=== PATIENT | male | born 1955 | race Caucasian/White ===

== ENCOUNTER → 2016-06-06 | Outpatient (CLI) | payer BC ==
--- NOTE | 2016-06-06 13:36 | PN ---
DATE OF SERVICE: A 61-year-old gentleman who has been followed in the sleep center for treatment of obstructive sleep apnea-hypopnea syndrome. Recently he had CPAP titration done and I discussed results of titration with the patient in details. His breathing was fully normalized at the pressure of 10 cm of water. At that pressure of 7 to 9 cm of water, he still had some abnormalities of respiration. Pressure all in the machine had been increased to 10 cm of water. Patient received new CPAP unit. At the beginning he had some difficulties secondary to pressure but at the present time he is used to the pressure using ramp and he is able to use equipment every night for the whole night. [place] Sleepiness Scale is 3. MEDICATIONS: Trulicity, ( ), losartan, aspirin, Zetia, ( ), vitamin D supplement. During physical exam, the patient in no distress. VITAL SIGNS: BP 115/65, HR 70, RR 16. Weight 201. Temp 98.0. Oxygen saturation at room air 94%. HEENT: PERRLA, EOMI, Evaluation of the oropharynx showed tongue protrudes midline. Low position of soft palate. NECK: Supple. No JVD, Thyroid is not palpable. LUNGS: Clear to percussion and to auscultation. Good air exchange. No wheezing or rhonchi. HEART: S1, S2 regular. No murmurs, gallops, or rubs. ABDOMEN: Soft and nontender. Bowel sounds are present. No organomegaly appreciated. EVENT MARKETING COORDINATOR: Awake, alert, and oriented x3. Cranial nerves 2 to 7 intact. There is no fasciculation or atrophy noted. No focal deficits observed. IMPRESSION: 1. Obstructive sleep apnea/hypopnea syndrome on control with CPAP at 10 cm of water. Patient benefiting from treatment. 2. Hypertension. 3. Coronary artery disease. 4. Hyperlipidemia. 5. Diabetes mellitus. 6. Status post colon resection for diverticulitis. 7. Status post intestinal resection for bleeding. 8. Status post hernia repair. 9. Status post appendectomy. PLAN: 1. Continue treatment with CPAP every night for the whole night. 2. Prescription for necessary CPAP supplies. 3. Losing weight. 4. Sleep hygiene with regular time in bed for at least 8 hours. 5. No driving if feeling any sleepiness. Thank you very much for allowing me to participate in the management of your patient. Sincerely, Rory Crowe MD, PhD, FAASM Diplomat of [place] [employer], Sleep Medicine Board by [place] [employer] [place] [employer] Electrician Master [employer] [facility] [place]
== END | disposition home or self-care (01) ==
LOC: SLEEP 11:26
PROVIDERS: ATTEND Internal Medicine
DX: G47.33 Obstructive sleep apnea (adult) (pediatric) (principal); I10 Essential (primary) hypertension; I25.10 Atherosclerotic heart disease of native coronary artery without angina pectoris; E78.5 Hyperlipidemia, unspecified; E11.9 Type 2 diabetes mellitus without complications; Z79.82 Long term (current) use of aspirin; Z99.89 Dependence on other enabling machines and devices; Z79.84 Long term (current) use of oral hypoglycemic drugs; Z79.899 Other long term (current) drug therapy

== ENCOUNTER → 2019-02-12 | Outpatient (CLI) | payer MEDICARE ==
--- NOTE | 2019-02-12 10:20 | MR ---
EXAMINATION TYPE: MR knee RT wo con DATE OF EXAM: 02/12/2019 COMPARISON: None HISTORY: Pain right knee, complex tear medial meniscus TECHNIQUE: Multiplanar, multisequence imaging of the right knee is performed without IV contrast. FINDINGS: MEDIAL MENISCUS: There is a complex tear involving the posterior horn of the medial meniscus LATERAL MENISCUS: Anterior and posterior horns are intact without tear. CRUCIATE LIGAMENTS: The anterior and posterior cruciate ligaments are intact and unremarkable. COLLATERAL LIGAMENTS: The medial collateral ligament and lateral collateral ligament complex are inta ct and unremarkable. EXTENSOR MECHANISM: Visualized quadriceps and patellar tendons are intact. EFFUSION: No significant suprapatellar joint effusion. POPLITEAL CYST: There is a 1 x 1 x 4 cm popliteal fossa cyst. TRICOMPARTMENT SPACES: There is loss of joint space involving the knee along both compartments greate r along the medial compartment. Patellofemoral joint involvement noted. No erosive changes. Grade III chondromalacia involving the patellar cartilage and medial femoral articular cartilage. No definite free fragments. BONE MARROW SIGNAL: Faint nonspecific vague less than 1 cm area of increased marrow signal involving the medial tibial plateau likely is reactive post arthritic changes.. IMPRESSION: 1. Complex tear posterior horn medial femoral cartilage 2. Osteoarthritis 3. Grade III chondromalacia patellar cartilage and medial femoral articular cartilage. 4. There is a popliteal fossa cyst measuring 1 x 1 x 4 cm.
== END | disposition home or self-care (01) ==
LOC: RADMRIMAIN 09:11
PROVIDERS: ATTEND Orthopaedic Surgery
DX: S83.241A Other tear of medial meniscus, current injury, right knee, initial encounter (principal); M17.11 Unilateral primary osteoarthritis, right knee; M22.41 Chondromalacia patellae, right knee; M25.861 Other specified joint disorders, right knee

== ENCOUNTER → 2019-10-01 | Outpatient (CLI) | payer MEDICARE | END | disposition home or self-care (01) | LOC: LABWHC1 14:22 | PROVIDERS: ATTEND Family Medicine | DX: Z11.59 Encounter for screening for other viral diseases (principal) | CPT/HCPCS: 36415; 86769 ==

== ENCOUNTER 2020-02-23 08:12 | Day surgery (SDC) | payer MEDICARE ==
[2020-02-21 11:27] VITALS: BMI 27.2
[~2020-02-23 08:12] MED LIST: LACTATED RINGERS 1,000 ML IV SCH; LIDOCAINE 1% (10MG/ML) FOR IV START INTRADERMA PRN
--- NOTE | 2020-02-23 08:58 | P.GSHP ---
History of Present Illness H&P Date: 02/23/20 CHIEF COMPLAINT: Colon screen HISTORY OF PRESENT ILLNESS: The patient is a 65-year-old male who presents for colon screen. Lower endoscopy was offered for further evaluation and management. PAST MEDICAL HISTORY: Please see list. PAST SURGICAL HISTORY: Please see list. MEDICATIONS: Please see list. ALLERGIES: Please see list. SOCIAL HISTORY: No illicit drug use FAMILY HISTORY: No reports of Crohn disease or ulcerative colitis. REVIEW OF ORGAN SYSTEMS: CONSTITUTIONAL: No reports of fevers or chills. PHYSICAL EXAM: VITAL SIGNS: Stable GENERAL: Well-developed pleasant in no acute distress. HEENT: No scleral icterus. Extraocular movements grossly intact. Moist buccal mucosa. NECK: Supple without lymphadenopathy. CHEST: Unlabored respirations. Equal bilateral excursions. CARDIOVASCULAR: Regular rate and rhythm. Distal 2+ pulses. ABDOMEN: Soft, nontender, nondistended. MUSCULOSKELETAL: No clubbing, cyanosis, or edema. ASSESSMENT: 1. Colon screen. PLAN: 1. Recommend proceeding with a lower endoscopy Past Medical History Past Medical History: Diabetes Mellitus, GERD/Reflux, Hyperlipidemia, Hypertension Additional Past Medical History / Comment(s): CONGENTIAL HEART DISEASE. DIVERTICULITIS History of Any Multi-Drug Resistant Organisms: None Reported Past Surgical History: Appendectomy, Bowel Resection, Heart Catheterization With Stent, Hernia Repair, Tonsillectomy Additional Past Surgical History / Comment(s): EXPLORATORY LAP FOR BLEED. SBO SX-2009. COLONOSCOPY/EGD Past Anesthesia/Blood Transfusion Reactions: No Reported Reaction Date of Last Stent Placement:: 2011 Smoking Status: Former smoker - Past Family History Mother Family Medical History: No Reported History Medications and Allergies Home Medications Medication Instructions Recorded Confirmed Type Aspirin [Adult Low Dose Aspirin EC] 81 mg PO DAILY 02/21/20 02/21/20 History DULoxetine HCL [Cymbalta] 30 mg PO DAILY 02/21/20 02/21/20 History Dapagliflozin Propanediol [Farxiga] 10 mg PO DAILY 02/21/20 02/21/20 History Dulaglutide [Trulicity] 1.5 mg SQ SA 02/21/20 02/21/20 History Ezetimibe [Zetia] 10 mg PO DAILY 02/21/20 02/21/20 History Ibuprofen [Motrin] 600 mg PO BID PRN 02/21/20 02/21/20 History Omeprazole 20 mg PO DAILY 02/21/20 02/21/20 History Sennosides/Docusate Sodium [Senna 1 each PO BID 02/21/20 02/21/20 History Plus 8.6-50 mg Softgel] Simvastatin 40 mg PO HS 02/21/20 02/21/20 History Allergies Allergy/AdvReac Type Severity Reaction Status Date / Time Iodine and Iodide Containing Allergy Anaphylaxis Verified 02/23/20 08:57 Produc shellfish derived Allergy Anaphylaxis Verified 02/23/20 08:57
[2020-02-23 09:08] LABS: Glucose,Whole Blood 171 mg/dL (75-99)
[2020-02-23 09:15] VITALS: TEMP 97.4
[2020-02-23] MEDS ORDERED: LIDOCAINE 1% INJ 10MG/ML (20 ML MDV) ONE (09:26)
[2020-02-23] MEDS ORDERED: PROPOFOL 10 MG/ML 20 ML VIAL IV ONE (09:26)
--- NOTE | 2020-02-23 09:53 | P.PCN ---
Date of Procedure: 02/23/20 Description of Procedure: PREOPERATIVE DIAGNOSIS: Personal history of colon polyps History of colectomy POSTOPERATIVE DIAGNOSIS: Personal history of colon polyps History of colectomy Diverticulosis, scattered. OPERATION: Colonoscopy to the cecum, ileocecal valve and appendiceal orifice. SURGEON: Genna Garsia MD. ANESTHESIA: MAC. INDICATIONS: The patient is a 65-year-old male who presents for colonoscopy screening. Last colonoscopy less than 5 years ago. Benefits and risks were described and informed consent was obtained. DESCRIPTION OF PROCEDURE: The patient had undergone Suprep. He had been brought into the operating room and laid in the left lateral decubitus position. After adequate intravenous sedation, the rectum was examined with 2% lidocaine jelly. External hemorrhoids were encountered. The rectal tone was within normal limits. No lesions were palpated in the rectal vault. An Olympus colonoscope was advanced until the cecum, ileocecal valve and appendiceal orifice were clearly viewed. The prep was excellent. Scattered diverticulosis was encountered. Hyperplastic colon polyp less than 3 mm in size along the cecum was found. No evidence of focal colitis was found. Retroflexion of the scope demonstrated grade 3 internal hemorrhoids without active bleeding or inflammation. The colon was desufflated. The patient had tolerated the procedure well. Withdrawal time was over 6 minutes. FINDINGS: Aronchick preparation quality scale 1 (1-5) Internal hemorrhoids, grade 3 External prolapsed hemorrhoids, grade 3 Scattered moderate diverticulosis No arteriovenous malformations. No adenomatous polyps. No focal colitis. RECOMMENDATIONS: Lower endoscopy in 3 years, 2022 Plan - Discharge Summary Discharge Rx Participant: No New Discharge Prescriptions: Continue Ibuprofen [Motrin] 600 mg PO BID PRN PRN Reason: Pain Dapagliflozin Propanediol [Farxiga] 10 mg PO DAILY DULoxetine HCL [Cymbalta] 30 mg PO DAILY Simvastatin 40 mg PO HS Ezetimibe [Zetia] 10 mg PO DAILY Sennosides/Docusate Sodium [Senna Plus 8.6-50 mg Softgel] 1 each PO BID Omeprazole 20 mg PO DAILY Dulaglutide [Trulicity] 1.5 mg SQ SA Aspirin [Adult Low Dose Aspirin EC] 81 mg PO DAILY Discharge Medication List Aspirin [Adult Low Dose Aspirin EC] 81 mg PO DAILY 02/21/20 [History] DULoxetine HCL [Cymbalta] 30 mg PO DAILY 02/21/20 [History] Dapagliflozin Propanediol [Farxiga] 10 mg PO DAILY 02/21/20 [History] Dulaglutide [Trulicity] 1.5 mg SQ SA 02/21/20 [History] Ezetimibe [Zetia] 10 mg PO DAILY 02/21/20 [History] Ibuprofen [Motrin] 600 mg PO BID PRN 02/21/20 [History] Omeprazole 20 mg PO DAILY 02/21/20 [History] Sennosides/Docusate Sodium [Senna Plus 8.6-50 mg Softgel] 1 each PO BID 02/21/20 [History] Simvastatin 40 mg PO HS 02/21/20 [History] Follow up Appointment(s)/Referral(s): Genna Garsia MD [STAFF PHYSICIAN] - As Needed Patient Instructions/Handouts: Diverticulosis Diet (GEN), Diverticulosis (DC), Hemorrhoids (DC) Activity/Diet/Wound Care/Special Instructions: Repeat colonoscopy 3 years, 2022 Discharge Disposition: HOME SELF-CARE
[2020-02-23 10:07] VITALS: BP 155/80; PULSE 71; RESP 16
== END 2020-02-23 10:29 | disposition home or self-care (01) ==
LOC: ORWHC2ENDO 08:12
PROVIDERS: ATTEND Surgery Plastic and Reconstructive Surgery
DX: Z12.11 Encounter for screening for malignant neoplasm of colon (principal); K63.5 Polyp of colon; K57.30 Diverticulosis of large intestine without perforation or abscess without bleeding; K64.2 Third degree hemorrhoids; K64.4 Residual hemorrhoidal skin tags; Z86.010 Personal history of colon polyps; Z90.49 Acquired absence of other specified parts of digestive tract; I10 Essential (primary) hypertension; E11.9 Type 2 diabetes mellitus without complications; E78.5 Hyperlipidemia, unspecified; K21.9 Gastro-esophageal reflux disease without esophagitis; Z95.5 Presence of coronary angioplasty implant and graft; Z87.891 Personal history of nicotine dependence; Z98.890 Other specified postprocedural states; Z79.1 Long term (current) use of non-steroidal anti-inflammatories (NSAID); Z79.82 Long term (current) use of aspirin; Z79.84 Long term (current) use of oral hypoglycemic drugs; Z79.899 Other long term (current) drug therapy; Z91.041 Radiographic dye allergy status; Z91.013 Allergy to seafood
CPT/HCPCS: J2001; J2704; G0105; 45378

== ENCOUNTER → 2021-10-16 | Outpatient (CLI) | payer MEDICARE ==
--- NOTE | 2021-10-16 14:39 | P.SLEEP ---
History of Present Illness H&P Date: 10/16/21 This is a 66-year-old male patient was diagnosed having obstructive sleep apnea in the year 2001. His original sleep study was done through an outside sleep center. Subsequently, the patient was seen in our sleep center and the patient underwent a CPAP titration in our sleep center on 03/19/2016 and at that time the patient was given a CPAP machine at a pressure of 10 cm of water. This was a dream station which is currently on recall and the patient quit using his machine for the past 2 years. For now, the patient is having issues with hypersomnia and sleepiness and is very much tired and fatigued and the patient is coming in to establish himself as same time proceed with CPAP therapy and wants to get a new CPAP machine. The patient is going to bed around 10 PM, waking up 7 AM in the morning. He is snoring. He is quitting breathing for now he is noted to have witnessed apneas. He is waking up not refreshed and he is feeling fatigued and tired during the day. On and off, he is taking naps. The patient wakes up at least 2-3 times in the middle of the night and is aroused. At times he has utilize the bathroom. No sleep paralysis. No hallucinations. No cataplexy. No recent weight gain. He has multiple comorbidities most significant of which is diabetes mellitus and heart disease in the form of coronary artery disease and hypertension hyperlipidemia. Review of Systems Constitutional: Reports daytime sleepiness, Reports fatigue Eyes: denies as per HPI, denies blurred vision, denies bulging eye, denies decreased vision, denies diplopia, denies discharge, denies dry eye, denies irritation, denies itching, denies pain, denies photophobia, denies loss of peripheral vision, denies loss of vision, denies tunnel vision/blind spots Ears: deny: decreased hearing, ear discharge, earache, tinnitus Ears, nose, mouth and throat: Reports as per HPI Cardiovascular: Reports as per HPI Respiratory: Reports sleep apnea, Reports snoring Gastrointestinal: Reports as per HPI Genitourinary: Reports as per HPI Musculoskeletal: Reports as per HPI Musculoskeletal: absent: ankle pain, ankle stiffness, ankle swelling Integumentary: Reports as per HPI Neurological: Reports as per HPI Psychiatric: Reports as per HPI Endocrine: Reports as per HPI Hematologic/Lymphatic: Reports as per HPI Allergic/Immunologic: Reports as per HPI Past Medical History Past Medical History: Coronary Artery Disease (CAD), Diabetes Mellitus, GE RD/Reflux, Hyperlipidemia, Hypertension, Sleep Apnea/CPAP/BIPAP Additional Past Medical History / Comment(s): CONGENTIAL HEART DISEASE. DIVERTICULITIS History of Any Multi-Drug Resistant Organisms: None Reported Past Surgical History: Appendectomy, Bowel Resection, Heart Catheterization With Stent, Hernia Repair, Tonsillectomy Additional Past Surgical History / Comment(s): EXPLORATORY LAP FOR BLEED. SBO SX-2009. COLONOSCOPY/EGD Past Anesthesia/Blood Transfusion Reactions: No Reported Reaction Date of Last Stent Placement:: 2011 Smoking Status: Former smoker - Past Family History Mother Family Medical History: No Reported History Medications and Allergies Home Medications Medication Instructions Recorded Confirmed Type Aspirin [Adult Low Dose Aspirin EC] 81 mg PO DAILY 02/21/20 02/21/20 History DULoxetine HCL [Cymbalta] 30 mg PO DAILY 02/21/20 02/21/20 History Dapagliflozin Propanediol [Farxiga] 10 mg PO DAILY 02/21/20 02/23/20 History Dulaglutide [Trulicity] 1.5 mg SQ SA 02/21/20 02/21/20 History Ezetimibe [Zetia] 10 mg PO DAILY 02/21/20 02/23/20 History Ibuprofen [Motrin] 600 mg PO BID PRN 02/21/20 02/21/20 History Omeprazole 20 mg PO DAILY 02/21/20 02/21/20 History Sennosides/Docusate Sodium [Senna 1 each PO BID 02/21/20 02/21/20 History Plus 8.6-50 mg Softgel] Simvastatin 40 mg PO HS 02/21/20 02/21/20 History Allergies Allergy/AdvReac Type Severity Reaction Status Date / Time Iodine and Iodide Containing Allergy Anaphylaxis Verified 02/23/20 08:57 Produc shellfish derived Allergy Anaphylaxis Verified 02/23/20 08:57 Physical Exam BP is 112/64 with a pulse of 96 and respiration of 12 with a temperature 97.3. Current pulse ox is 95%. Weight is 193. Body mass index is 28, [place] at 4 and excited 17 inches. The patient appeared well nourished and normally developed. Vital signs as docum ented. Head exam is unremarkable. No scleral icterus or corneal arcus noted. Neck is without jugular venous distension, thyromegaly, or carotid bruits. Carotid upstrokes are brisk bilaterally. Lungs are clear to auscultation and percussion. Cardiac exam reveals the PMI to be normally sized and situated. Rhythm is regular. First and second heart sounds normal. No murmurs, rubs or gallops. Abdominal exam reveals normal bowel sounds, no masses, no organomegaly and no aortic enlargement. Extremities are nonedematous and both femoral and pedal pulses are normal.Examination of the skin revealed no evidence of significant rashes, suspicious appearing nevi or other concerning lesions.Neurologically, the patient is awake and alert and the patient does not have any focal neurological deficit. Cranial nerves are essentially intact. Assessment and Plan Plan: Obstructive sleep apnea, patient was being successfully treated with CPAP pressure of 10 cm of water. The patient currently does not have a machine and the patient is coming in requesting a new machine to be ordered for him for ongoing CPAP therapy. He has been a long-time CPAP user. Quit his CPAP therapy approximately 2 years ago due to a recall on his machine. Chronic hypersomnia secondary to above Coronary artery disease Hypertension Diabetes mellitus Hyperlipidemia History of colon resection for an underlying complicated diverticulitis Previous history of GI bleeding Plan Ideally, would like to obtain a home sleep study to establish diagnosis and severity of sleep apnea. This was done for the patient. The same time, a ResMed CPAP unit was ordered for the patient and a minimum pressure of 5 and a maximum pressure 15 and I offered him airfit F20 fullface mask medium size. If the machine is delivered to the patient successfully, the patient will see back in the office in 30-90 days after obtaining his machine for a compliance check. Sleep hygiene measures are good. The patient is maintaining a regular sleep schedule. Condition is stable for now. We'll continue to follow. Sleep Note - Sleep Note Sleep Note: Temperature: Pulse Rate: Respiratory Rate: Blood Pressure: SpO2: Height: Weight: BMI: Neck Circumference:
== END ==
LOC: SLEEP 12:58
PROVIDERS: ATTEND Internal Medicine Critical Care Medicine
DX: G47.33 Obstructive sleep apnea (adult) (pediatric) (principal); Z99.89 Dependence on other enabling machines and devices; I25.10 Atherosclerotic heart disease of native coronary artery without angina pectoris; I10 Essential (primary) hypertension; E11.9 Type 2 diabetes mellitus without complications; E78.5 Hyperlipidemia, unspecified; Z98.890 Other specified postprocedural states; Z87.19 Personal history of other diseases of the digestive system; K21.9 Gastro-esophageal reflux disease without esophagitis; Z72.89 Other problems related to lifestyle; Z79.899 Other long term (current) drug therapy; Z79.84 Long term (current) use of oral hypoglycemic drugs; Z91.041 Radiographic dye allergy status; Z91.013 Allergy to seafood; Z87.891 Personal history of nicotine dependence
CPT/HCPCS: 99211

== ENCOUNTER → 2021-12-25 | Outpatient (CLI) | payer MEDICARE ==
--- NOTE | 2021-12-25 14:20 | CT ---
EXAMINATION TYPE: CT right knee - [facility] Protocol DATE OF EXAM: 12/25/2021 COMPARISON: MRI right knee February 12, 2019 HISTORY: pre op. Primary osteoarthritis. CT DLP: 634 mGycm. Automated Exposure Control for Dose Reduction was Utilized. TECHNIQUE: CT scan of the right knee performed without contrast. FINDINGS: Exam is for surgical planning and not for diagnostic purposes. [id number] axial join t space loss and acetabular spurring of both hips is present. Images of the right knee show moderate to severe narrowing and moderate spurring medial tibial femora l compartment. Lateral patellar tilting is seen. Images of bilateral ankles show asymmetric medial narrowing at level of ankle mortise bilaterally wit h more severe tilting and narrowing on the right suggesting prior ligamentous tear and/or remote accounts receivable assistant marcio injury. Correlate clinically. IMPRESSION: As above.
== END | disposition home or self-care (01) ==
LOC: RADCTMAIN 12:52
PROVIDERS: ATTEND Orthopaedic Surgery
DX: Z01.818 Encounter for other preprocedural examination (principal); M17.11 Unilateral primary osteoarthritis, right knee

== ENCOUNTER → 2021-12-31 | Outpatient (CLI) | payer MEDICARE ==
[2021-12-31 13:41] LABS: Partial Thromboplastin Time 22.7 sec (22.0-30.0); Prothrombin Time 10.5 sec (9.0-12.0)
[2021-12-31 18:06] LABS: HCT 41.3 % (39.6-50.0); HGB 13.7 g/dL (13.0-17.0); MCH 31.5 pg (27.0-32.0); MCHC 33.2 g/dL (32.0-37.0); MCV 94.9 fL (80.0-97.0); Mean Platelet Volume 11.4 fL (9.5-12.2); NRBC Per 100 WBC 0 /100 WBCS (0.0-0.0); Platelet Count 219 X 10*3/uL (140-440); RBC 4.35 X 10*6/uL (4.40-5.60); RDW 13.3 % (11.5-14.5); WBC 5.24 X 10*3/uL (4.50-10.00)
[2021-12-31 18:10] LABS: African American GFR (CKD) 79.5 (60.0-200.0); Albumin 4.7 g/dL (3.8-4.9); Albumin/Globulin Ratio 1.81 (1.60-3.17); Anion Gap 14.5 mmol/L (10.00-18.00); BUN/Creat Ratio 20.45 Ratio (12.00-20.00); Blood Urea Nitrogen 22.5 mg/dL (9.0-27.0); Calcium 9.9 mg/dL (8.7-10.3); Carbon Dioxide 23.5 mmol/L (20.0-27.5); Globulin 2.6 g/dL (1.6-3.3); Non-African American GFR(CKD) 68.6 (60.0-200.0); Potassium 4.2 mmol/L (3.5-5.5); Total Bilirubin 0.5 mg/dL (0.30-1.20); Total Protein 7.3 g/dL (6.2-8.2)
[2021-12-31 22:50] LABS: Appearance,Urine Clear (Clear); Bilirubin,Urine Negative (Negative); Blood,Urine Negative (Negative); Color,Urine Yellow (Yellow); Ketones,Urine Negative (Negative); Nitrite,Urine Negative (Negative); PH, Urine 5.5 (5.0-8.0); Specific Gravity,Urine >1.035 (1.001-1.030); Urobilinogen,Urine 0.2 (0.2,1.0)
== END | disposition home or self-care (01) ==
LOC: LABPAT 11:49
PROVIDERS: ATTEND Orthopaedic Surgery
DX: Z01.812 Encounter for preprocedural laboratory examination (principal)
CPT/HCPCS: 36415; 80053; 81003; 85027; 85610; 85730; 87070; 93005

== ENCOUNTER 2022-01-29 05:43 | Day surgery (SDC) | payer MEDICARE ==
[2022-01-28 09:21] VITALS: BMI 26.5
[~2022-01-29 05:43] MED LIST changes: +ACETAMINOPHEN TAB 500 MG TAB PO PRN; +DEXAMETHASONE SOD PHOSPHATE 4 MG/ML 1 ML VIAL IV ONE; +GABAPENTIN 300 MG CAP PO PRN; -LIDOCAINE 1% (10MG/ML) FOR IV START INTRADERMA PRN; +MELOXICAM 7.5 MG TAB PO PRN; +ONDANSETRON 4 MG/2 ML VIAL IVP ONE; +TRANEXAMIC ACID IN NACL,ISO-OS 1,000 MG in SALINE 1 100ML.BAG IVPB PRN
[2022-01-29] MEDS ORDERED: MIDAZOLAM 2 MG/2 ML VIAL IVP ONE (06:42)
[2022-01-29] MEDS ORDERED: fentaNYL (PF) 50 MCG/ML 2 ML AMP IVP ONE (06:42)
[2022-01-29 07:02] LABS: Glucose,Whole Blood 275 mg/dL (70-110)
[2022-01-29] MEDS ORDERED: ePHEDrine 50 MG/ML 1 ML VIAL ONE (07:04)
[2022-01-29] MEDS ORDERED: ROCURONIUM 10 MG/ML (5 ML VIAL) IV ONE (07:04)
[2022-01-29] MEDS ORDERED: SUCCINYLCHOLINE CHLORIDE 200 MG/10 ML VIAL IV ONE (07:04)
[2022-01-29] MEDS ORDERED: TRANEXAMIC ACID IN NACL,ISO-OS 1,000 MG/100 ML BAG ONE (07:04)
[2022-01-29] MEDS ORDERED: MIDAZOLAM 2 MG/2 ML VIAL ONE (07:04)
[2022-01-29] MEDS ORDERED: HYDROmorphone (PF) 1 MG/ML ONE (07:04)
[2022-01-29] MEDS ORDERED: fentaNYL (PF) 50 MCG/ML 2 ML AMP ONE (07:04)
[2022-01-29] MEDS ORDERED: SODIUM CHLORIDE 0.9% (PF) 10 ML VIAL ONE (07:04)
[2022-01-29] MEDS ORDERED: NEOSTIGMINE 1 MG/ML 10 ML VIAL ONE (07:04)
[2022-01-29] MEDS ORDERED: GLYCOPYRROLATE 0.2 MG/ML 2 ML VIAL ONE (07:04)
[2022-01-29] MEDS ORDERED: PROPOFOL 10 MG/ML 20 ML VIAL IV ONE (07:04)
[2022-01-29] MEDS ORDERED: ROPIVACAINE 5 MG/ML 30 ML VIAL ONE (07:04)
[2022-01-29] MEDS ORDERED: LIDOCAINE 2% INJ 20 MG/ML (2 ML VIAL) ONE (07:04)
[2022-01-29] MEDS ORDERED: INSULIN ASPART (NovoLOG) 100 UNIT/ML VIAL SQ ONE ×3 (07:05→10:06)
[2022-01-29] MEDS ORDERED: ceFAZolin 1,000 MG in SODIUM CHLORIDE 0.9% 1,000 ML IRRIGATION ONE (07:09)
[2022-01-29] MEDS ORDERED: LACTATED RINGERS 1,000 ML IV ONE (08:00)
[2022-01-29 08:21] LABS: Glucose,Whole Blood 224 mg/dL (70-110)
--- NOTE | 2022-01-29 08:51 | P.OP ---
Date of Procedure: 01/29/22 Preoperative Diagnosis: Severe medial compartment osteoarthritis right knee Postoperative Diagnosis: Severe medial compartment osteoarthritis right knee Procedure(s) Performed: Robotic-assisted medial unicompartmental knee replacement right knee Implants: Robert Restoris MCK femoral component size 5 right medial Robert Restoris MCK tibial baseplate size 4 right medial Robert X3 Uni onlay tibial insert size 4, 8 mm All components were cemented using Palacos R bone cement Articulation is cobalt chrome on polyethylene Anesthesia: GETA Surgeon: Frank Trinh Learning Support Specialist #1: Michael Hidalgo Learning Support Specialist #2: Linnette Wu Estimated Blood Loss (ml): 30 Pathology: other (Bone and cartilage) Condition: stable Disposition: PACU Indications for Procedure: This is a 67-year-old gentleman that presented to my office with painful arthritis of his right knee mainly located in the medial compartment. After discussing the surgical and nonsurgical treatment options with him at length, including a total knee arthroplasty versus a unicompartmental medial knee arthroplasty he has elected to proceed with the medial unicompartmental knee arthroplasty. He is aware of possible complications and benefits and informed consent was obtained. Operative Findings: The operative findings are consistent with medial compartment severe osteoarthritis of the right knee Description of Procedure: Patient was seen in the preoperative area and the consent was reviewed and the operative site was marked with a skin marker. The patient verified the procedure and the operative site. An adductor canal pain catheter and an iPACK block was placed by anesthesia in the preoperative area. The patient was then brought to the operating room and given preoperative antibiotics intravenously. A gram of transexamic acid was given intravenously. A general anesthetic was administered by the anesthesia department. A tourniquet was placed on the upper thigh and the lower extremity was prepped with chlorhexidine and draped in usual sterile fashion. A universal timeout was then performed which confirmed the patient's name, surgical site, ALLERGIES, and consent. The lower extremity was then exsanguinated and tourniquet was inflated to 250 mmHg. A standard anterior midline approach to the knee was performed. The skin and subcutaneous tissue were sharply dissected down to the patellar tendon. A medial parapatellar arthrotomy was then performed. The knee was then extended, the patellar was subluxed laterally. The infra-patellar fat pad was removed in order to enhance exposure. The anterior of the medial meniscus was excised, and a release was performed to the posterior medial aspect of the knee. On gross visual inspection, there was complete loss of articular cartilage in the medial compartment. There was no significant cartilage damage in the lateral compartment or patellofemoral compartment. There were multiple periarticular osteophytes globally about the medial aspect of the knee. The arrays were then placed in the distal femur and proximal tibia for the Handy robot. Check points were then registered per protocol. After all the checks points had been registered, the proximal tibia was then cut utilizing the Robert robotic arm and a saw blade. Next, the saw blade was used to cut the posterior femur. Next the sawblade was exchanged for bur and the medial femoral condyle and proximal tibia was then burred per protocol. Trials were then placed and the osteophytes removed with a Rominger. The knee was taken through range of motion as well as checked with the Robert wear which confirmed concentric tension throughout range of motion. The trials were then visualized and there is no evidence of any overhang or possible sites of impingement. The arrays were then removed from the distal femur and proximal tibia. The cut surfaces of bone were then irrigated with pulsatile lavage. The knee was also irrigated with Irrisept solution. The components were then opened, the cement was mixed, and the components were then cemented in place. The cement was allowed to harden with the knee in 30 of extension. After the cemented munoz rdened, the tourniquet was released and hemostasis was obtained. A second gram of transexamic acid was given intravenously. The knee was again irrigated. The knee was again taken through range of motion and found to be stable throughout all range of motion of 0-130, and the patella tracked normally. The fascia was then closed with 0 Vicryl followed by #2 strata fix suture. The subcutaneous t issue was closed with 3-0 Vicryl and 3-0 strata fix. Exofin glue was used for the skin and placed with the knee in flexion. After the glue had dried, and Optafoam silver impregnated dressing was applied. The patient was then transferred to recovery room in stable condition. The speech language pathology assistant Michael Hidalgo M.D. and MARY ANN Gonzalez was required due the complexity surgery and the need for a skilled surgical supply assistant. They assisted in positioning, draping, retraction, and closure of the wound.
[2022-01-29] MEDS ORDERED: NALOXONE 0.4 MG/ML 1 ML VIAL IV PRN (09:18)
[2022-01-29] MEDS ORDERED: HYDROmorphone 0.5 MG/0.5 ML SYRINGE IVP PRN ×3 (09:18)
[2022-01-29] MEDS ORDERED: ONDANSETRON 4 MG/2 ML VIAL IVP PRN (09:18)
[2022-01-29] MEDS ORDERED: HYDROcodone/APAP 7.5-325MG 1 EACH TAB PO PRN ×2 (09:20)
[2022-01-29 09:22] VITALS: RESP 16; TEMP 96.9
[2022-01-29] MEDS ORDERED: ROPIVACAINE 1,100 MG, SODIUM CHLORIDE 0.9% 500 ML 330 ML, EMPTY PAIN BALL 1 EACH MISCELLANE PRN ×2 (09:25)
[2022-01-29] MEDS: HYDROmorphone 0.5 MG/0.5 ML SYRINGE IVP PRN ×2 (09:29→09:46)
[2022-01-29] MEDS ORDERED: SODIUM CHLORIDE 0.9% 1,000 ML IV SCH (09:30)
[2022-01-29 09:45] LABS: Glucose,Whole Blood 266 mg/dL (70-110)
--- NOTE | 2022-01-29 09:55 | XR ---
EXAMINATION TYPE: XR knee limited RT DATE OF EXAM: 01/29/2022 COMPARISON: NONE TECHNIQUE: Two views submitted HISTORY: Post op FINDINGS: There is a prosthetic knee in near anatomic alignment. There is soft tissue edema and emphysema. IMPRESSION: 1. Postoperative change. Appears in near-anatomic alignment
[2022-01-29] MEDS ORDERED: ROPIVACAINE 0.2%-NS ON-Q PUMP 1,090 MG, EMPTY PAIN BALL 1 EACH MISCELLANE PRN (10:22)
--- NOTE | 2022-01-29 10:23 | P.ANPRN ---
Procedure Note - Anesthesia - Nerve Block Performed Right Adductor Canal Time Out Performed: Yes (06:41) Date of Procedure: 01/29/22 Procedure Start Time: Procedure Stop Time: :50 Location of Patient: PreOp Indication: Acute Post-Operative Pain, Requested by Surgeon (Dr Trinh) Sedation Type: Sedate with meaningful contact maintained Preparation: Sterile Prep, Sterile Dressing Position: Supine Catheter: Indwelling Needle Types: Pajunk Needle Gauge: 21 Ultrasound used to visualize needle placement: Yes Ultrasound used to observe medication spread: Yes Injectate: 0.5% Ropivacaine (see comment for volume) (15cc) Blood Aspirated: No Pain Paresthesia on Injection Noted: No Resistance on Injection: Normal Image Stored and Saved: Yes Events: Uneventful and Well Tolerated
--- NOTE | 2022-01-29 10:25 | P.ANPRN ---
Procedure Note - Anesthesia - Nerve Block Performed Right iPack Time Out Performed: Yes Date of Procedure: 01/29/22 Procedure Start Time: 06:51 Procedure Stop Time: 06:56 Location of Patient: PreOp Indication: Acute Post-Operative Pain, Requested by Surgeon (Dr Trinh) Sedation Type: Sedate with meaningful contact maintained Preparation: Sterile Prep Position: Supine Catheter: None Needle Types: Pajunk Needle Gauge: 21 Ultrasound used to visualize needle placement: Yes Ultrasound used to observe medication spread: Yes Injectate: 0.5% Ropivacaine (see comment for volume) (15cc +5cc PF Normal saline) Blood Aspirated: No Pain Paresthesia on Injection Noted: No Resistance on Injection: Normal Image Stored and Saved: Yes Events: Uneventful and Well Tolerated
[2022-01-29] MEDS ORDERED: ceFAZolin 10 GM VIAL IVPB ONE (11:10)
[2022-01-29] MEDS ORDERED: HYDROcodone/APAP 7.5-325MG 1 EACH TAB PO ONE (11:10)
[2022-01-29 11:11] VITALS: BP 176/81; PULSE 63
== END 2022-01-29 12:54 | disposition home health service (06) ==
LOC: OR 05:43
PROVIDERS: ATTEND Orthopaedic Surgery
DX: M17.11 Unilateral primary osteoarthritis, right knee (principal); E11.9 Type 2 diabetes mellitus without complications; I11.9 Hypertensive heart disease without heart failure; G89.18 Other acute postprocedural pain; Z79.899 Other long term (current) drug therapy; Z79.84 Long term (current) use of oral hypoglycemic drugs
CPT/HCPCS: 97110; 97161; 64999; 64448; 76942; 88300; 73560; 27446; C1713; C1776; J2250; J0330; J1100; J2710; J0690 ×2; J2405; J3010; J1170 ×2; J2795; J2704; J2001

== ENCOUNTER 2024-08-11 07:01 | Day surgery (SDC) | payer MEDICARE ==
[2024-08-11 07:44] VITALS: TEMP 97.8
[2024-08-11] MEDS: IV FLUID CONTINUATION 1,000 ML IV ONE (07:54)
[2024-08-11 07:55] LABS: Glucose,Whole Blood 131 mg/dL (70-110)
[2024-08-11 07:55] LABS: Glucose,Whole Blood 34 mg/dL (70-110)
[2024-08-11] MEDS: LACTATED RINGERS 1,000 ML IV SCH (07:56)
[2024-08-11] MEDS ORDERED: LIDOCAINE 1% INJ 10MG/ML (20 ML MDV) ONE (08:23)
[2024-08-11] MEDS ORDERED: PROPOFOL 10 MG/ML 20 ML VIAL IV ONE (08:23)
--- NOTE | 2024-08-11 08:41 | P.GSHP ---
History of Present Illness H&P Date: 08/11/24 CHIEF COMPLAINT: GERD and colon screen HISTORY OF PRESENT ILLNESS: The patient is a 69-year-old male who presents with gastric ulcer and need for colon screen. Upper and lower endoscopy were offered for further evaluation and management. PAST MEDICAL HISTORY: Please see list. PAST SURGICAL HISTORY: Please see list. MEDICATIONS: Please see list. ALLERGIES: Please see list. SOCIAL HISTORY: No illicit drug use FAMILY HISTORY: No reports of Crohn disease or ulcerative colitis. REVIEW OF ORGAN SYSTEMS: CONSTITUTIONAL: No reports of fevers or chills. GI: Denies any blood in stools or constipation. PHYSICAL EXAM: VITAL SIGNS: Stable GENERAL: Well-developed pleasant in no acute distress. HEENT: No scleral icterus. Extraocular movements grossly intact. Moist buccal mucosa. NECK: Supple without lymphadenopathy. CHEST: Unlabored respirations. Equal bilateral excursions. CARDIOVASCULAR: Regular rate and rhythm. Distal 2+ pulses. ABDOMEN: Soft, nondistended. MUSCULOSKELETAL: No clubbing, cyanosis, or edema. ASSESSMENT: 1. Gastric ulcer 2. Colon screen. PLAN: 1. Recommend proceeding with an upper and lower endoscopy Past Medical History Past Medical History: Coronary Artery Disease (CAD), Diabetes Mellitus, GERD/Ref lux, Hyperlipidemia, Hypertension, Sleep Apnea/CPAP/BIPAP Additional Past Medical History / Comment(s): CONGENTIAL HEART DISEASE,. DIVERTICULITIS History of Any Multi-Drug Resistant Organisms: None Reported Past Surgical History: Appendectomy, Bowel Resection, Heart Catheterization With Stent, Hernia Repair, Orthopedic Surgery, Tonsillectomy Additional Past Surgical History / Comment(s): EXPLORATORY LAP FOR BLEED. SBO S. COLONOSCOPY/EGD. Right knee replacement 02/02. 4 cardiac stents, 10 angioplasties, 7 abdominal surgeries. Past Anesthesia/Blood Transfusion Reactions: No Reported Reaction Date of Last Stent Placement:: 2021 Smoking Status: Former smoker - Past Family History Mother Family Medical History: No Reported History Medications and Allergies Home Medications Medication Instructions Recorded Confirmed Type Aspirin [Adult Low Dose Aspirin EC] 81 mg PO HS 02/21/20 08/11/24 History DULoxetine HCL [Cymbalta] 30 mg PO DAILY 02/21/20 08/11/24 History Dapagliflozin Propanediol [Farxiga] 10 mg PO DAILY 02/21/20 08/11/24 History Ezetimibe [Zetia] 10 mg PO DAILY 02/21/20 08/11/24 History Ibuprofen [Motrin] 600 mg PO BID 02/21/20 08/11/24 History Omeprazole 20 mg PO DAILY 02/21/20 08/11/[address] [place] 1 cap PO HS 01/28/22 08/11/24 History Acetaminophen [Tylenol 8 Hour] 650 mg PO Q6H 05/16/22 08/11/24 History Clopidogrel [Plavix] 75 mg PO DAILY 05/16/22 08/11/24 History [place]-3/Dha/Epa/Fish Oil [Fish Oil 1 cap PO HS 05/16/22 08/11/24 History 1,000 mg Softgel] Semaglutide [Ozempic] 2 mg SQ GONZALEZ 05/16/22 08/11/24 History Sennosides/Docusate Sodium [Senna 1 tab PO BID 05/16/22 08/11/24 History Plus 8.6-50 mg Tablet] Turmeric Root Extract [Turmeric] 500 mg PO DAILY 05/16/22 08/11/24 History glipiZIDE/METFORMIN HCL 1 tab PO DAILY 05/16/22 08/11/24 History [glipiZIDE/METFORMIN HCL 5-500 mg] Atorvastatin [Lipitor] 80 mg PO HS tab 05/18/22 08/11/24 Rx Nitroglycerin Sl Tabs [Nitrostat] 0.4 mg SUBLINGUAL Q5M PRN tab 05/18/22 08/11/24 Rx Olmesartan [Benicar] 40 mg PO DAILY 08/09/24 08/11/24 History Allergies Allergy/AdvReac Type Severity Reaction Status Date / Time Iodine and Iodide Containing Allergy Anaphylaxis Verified 08/11/24 07:29 Produc shellfish derived Allergy Anaphylaxis Verified 08/11/24 07:29 Surgical - Exam Vital Signs Temp Pulse Resp BP Pulse Ox 97.8 F 59 L 14 146/71 97 08/11/24 07:43 08/11/24 07:43 08/11/24 07:43 08/11/24 07:43 08/11/24 07:43 Results - Labs Abnormal Lab Results - Last 24 Hours (Table) 08/11/24 08/11/24 Range/Units 07:50 07:53 POC Glucose (mg/dL) 34 L* 131 H (70-110) mg/dL
--- NOTE | 2024-08-11 08:45 | P.PCN ---
Date of Procedure: 08/11/24 Description of Procedure: PREOPERATIVE DIAGNOSIS: Gastroesophageal reflux disease. Gastric ulcer POSTOPERATIVE DIAGNOSIS: Gastroesophageal reflux disease. Diaphragmatic hiatal hernia OPERATION: Esophagogastroduodenoscopy with cold forceps biopsies along esophagus, antrum and duodenum SURGEON: Genna Garsia MD ANESTHESIA: MAC. INDICATIONS: The patient is a 69-year-old male who presents with reflux disease. Benefits and risks of the procedure were described. Informed consent was obtained. DESCRIPTION: The patient was brought into the endoscopy suite and laid in the left lateral decubitus position. An Olympus gastroscope was passed along the posterior oropharynx down to the distal esophagus where the squamocolumnar junction was encountered at 40 cm from the incisors. The stomach was entered and no bile reflux was found. Additional findings are listed below. Biopsies with cold forceps were obtained of the antrum. The first through third portion of the duodenum was examined. Retroflexion of the scope confirmed Hill grade 2 lower esophageal valve. The squamocolumnar junction demonstrated LA grade A erosive esophagitis. The stomach was desufflated. The patient tolerated the procedure well. FINDINGS: Squamocolumnar junction 40 cm from the incisors. Diaphragmatic hiatus at 41 cm. Hiatal hernia, 1 cm, sliding hiatal hernia Hill grade 2 lower esophageal valve. LA grade A erosive esophagitis. Biopsies obtained of the duodenum. Chronic gastritis with biopsies obtained. Resolved gastric ulcer of the antrum RECOMMENDATIONS: Upper endoscopy as needed.
--- NOTE | 2024-08-11 09:29 | P.PCN ---
Date of Procedure: 08/11/24 Description of Procedure: PREOPERATIVE DIAGNOSIS: Colonoscopy screening POSTOPERATIVE DIAGNOSIS: Tubular adenoma transverse colon Sigmoid diverticulosis Internal hemorrhoids, grade 2 OPERATION: Colonoscopy to the ileocecal valve and appendiceal orifice, cecum Colonoscopy with hot snare polypectomy SURGEON: Genna Garsia MD. ANESTHESIA: MAC. INDICATIONS: The patient is an 69-year-old male who presents for colonoscopy screening. Last colonoscopy over 5 years. Benefits and risks were described and informed consent was obtained. DESCRIPTION OF PROCEDURE: The patient had undergone S[place] prep. The patient had been brought into the operating room and laid in the left lateral decubitus position. After adequate intravenous sedation, the rectum was examined with 2% lidocaine jelly. The prostate was unremarkable. External hemorrhoids were encountered. The rectal tone was within normal limits. No lesions were palpated in the rectal vault. An Olympus colonoscope was advanced until the cecum, ileocecal valve and appendiceal orifice were clearly viewed. The prep was fair. Sigmoid dive rticulosis was encountered. Colonic polyps were found and removed. No evidence of focal colitis was found. Retroflexion of the scope demonstrated grade 2 internal hemorrhoids without active bleeding or inflammation. The colon was desufflated. The patient had tolerated the procedure well. Withdrawal time was over 6 minutes. FINDINGS: [place]ick preparation quality scale 2+ (1-5) Internal hemorrhoids, grade 2 External hemorrhoids, grade 2 No arteriovenous malformations. Sigmoid diverticulosis Removal of 1 polyps: - Snare polypectomy mid transverse colon, 8 mm flat villous adenoma polyp. No focal colitis. RECOMMENDATIONS: Repeat colonoscopy 3 years, 2027 Plan - Discharge Summary Discharge Rx Participant: No New Discharge Prescriptions: Continue Ibuprofen [Motrin] 600 mg PO BID Dapagliflozin Propanediol [Farxiga] 10 mg PO DAILY DULoxetine HCL [Cymbalta] 30 mg PO DAILY Ezetimibe [Zetia] 10 mg PO DAILY Omeprazole 20 mg PO DAILY Aspirin [Adult Low Dose Aspirin EC] 81 mg PO HS Turmeric Root Extract [Turmeric] 500 mg PO DAILY [place]-3/Dha/Epa/Fish Oil [Fish Oil 1,000 mg Softgel] 1 cap PO HS Acetaminophen [Tylenol 8 Hour] 650 mg PO Q6H glipiZIDE/METFORMIN HCL [glipiZIDE/METFORMIN HCL 5-500 mg] 1 tab PO DAILY Sennosides/Docusate Sodium [Senna Plus 8.6-50 mg Tablet] 1 tab PO BID Nitroglycerin Sl Tabs [Nitrostat] 0.4 mg SUBLINGUAL Q5M PRN tab PRN Reason: Chest Pain Olmesartan [Benicar] 40 mg PO DAILY [place] 1 cap PO HS Semaglutide [Ozempic] 2 mg SQ GONZALEZ Clopidogrel [Plavix] 75 mg PO DAILY Atorvastatin [Lipitor] 80 mg PO HS tab Discharge Medication List Aspirin [Adult Low Dose Aspirin EC] 81 mg PO HS 02/21/20 [History] DULoxetine HCL [Cymbalta] 30 mg PO DAILY 02/21/20 [History] Dapagliflozin Propanediol [Farxiga] 10 mg PO DAILY 02/21/20 [History] Ezetimibe [Zetia] 10 mg PO DAILY 02/21/20 [History] Ibuprofen [Motrin] 600 mg PO BID 02/21/20 [History] Omeprazole 20 mg PO DAILY 02/21/20 [History] [place] 1 cap PO HS 01/28/22 [History] Acetaminophen [Tylenol 8 Hour] 650 mg PO Q6H 05/16/22 [History] Clopidogrel [Plavix] 75 mg PO DAILY 05/16/22 [History] [place]-3/Dha/Epa/Fish Oil [Fish Oil 1,000 mg Softgel] 1 cap PO HS 05/16/22 [History] Semaglutide [Ozempic] 2 mg SQ GONZALEZ 05/16/22 [History] Sennosides/Docusate Sodium [Senna Plus 8.6-50 mg Tablet] 1 tab PO BID 05/16/22 [History] Turmeric Root Extract [Turmeric] 500 mg PO DAILY 05/16/22 [History] glipiZIDE/METFORMIN HCL [glipiZIDE/METFORMIN HCL 5-500 mg] 1 tab PO DAILY 06/06 [History] Atorvastatin [Lipitor] 80 mg PO HS tab 05/18/22 [Rx] Nitroglycerin Sl Tabs [Nitrostat] 0.4 mg SUBLINGUAL Q5M PRN tab 05/18/22 [Rx] Olmesartan [Benicar] 40 mg PO DAILY 08/09/24 [History] Follow up Appointment(s)/Referral(s): Genna Garsia MD [STAFF PHYSICIAN] - 08/31/24 11:00 am Patient Instructions/Handouts: *Surgery [facility] - (Anesthesia) Discharge Instructions Outpatient Surgery, Diverticulosis Diet (GEN), Colorectal Polyps (GEN) Activity/Diet/Wound Care/Special Instructions: Resume clopidogrel today. Repeat colonoscopy 3 years, 2027 Discharge Disposition: HOME SELF-CARE
[2024-08-11 09:35] VITALS: BP 114/70; PULSE 65; RESP 18
== END 2024-08-11 09:36 | disposition home or self-care (01) ==
LOC: ORWHC2ENDO 07:01
PROVIDERS: ATTEND Surgery Plastic and Reconstructive Surgery
DX: Z12.11 Encounter for screening for malignant neoplasm of colon (principal); D12.3 Benign neoplasm of transverse colon; K29.50 Unspecified chronic gastritis without bleeding; K25.9 Gastric ulcer, unspecified as acute or chronic, without hemorrhage or perforation; K21.9 Gastro-esophageal reflux disease without esophagitis; K44.9 Diaphragmatic hernia without obstruction or gangrene; K57.30 Diverticulosis of large intestine without perforation or abscess without bleeding; K64.1 Second degree hemorrhoids; I25.10 Atherosclerotic heart disease of native coronary artery without angina pectoris; E11.9 Type 2 diabetes mellitus without complications; E78.5 Hyperlipidemia, unspecified; I10 Essential (primary) hypertension; G47.33 Obstructive sleep apnea (adult) (pediatric); Z90.89 Acquired absence of other organs; Z90.49 Acquired absence of other specified parts of digestive tract; Z96.651 Presence of right artificial knee joint; Z95.5 Presence of coronary angioplasty implant and graft; Z87.891 Personal history of nicotine dependence; Z98.890 Other specified postprocedural states; Z88.8 Allergy status to other drugs, medicaments and biological substances; Z91.041 Radiographic dye allergy status; Z79.84 Long term (current) use of oral hypoglycemic drugs; Z79.82 Long term (current) use of aspirin; Z79.1 Long term (current) use of non-steroidal anti-inflammatories (NSAID); Z79.02 Long term (current) use of antithrombotics/antiplatelets; Z79.899 Other long term (current) drug therapy
CPT/HCPCS: 88305; 45385; 43239; J2003; J2704

== ENCOUNTER → 2024-08-18 | Outpatient (CLI) | payer MEDICARE ==
[2024-08-18 09:44] LABS: African American GFR (CKD) 86 (>60 ml/min/1.73 sqM); Blood Urea Nitrogen 36 mg/dL (9-20); Non-African American GFR(CKD) 75 (>60 ml/min/1.73 sqM)
--- NOTE | 2024-08-18 10:25 | CT ---
EXAMINATION TYPE: CT abdomen pelvis w con CT DLP: 966.3 mGycm, Automated exposure control for dose reduction was used. DATE OF EXAM: 08/18/2024 10:14 AM COMPARISON: None CLINICAL INDICATION:Male, 69 years old with history of K57.32 diverticulitis; Diverticulitis and pote ntial abdominal blockage TECHNIQUE: Standard CT of the abdomen and pelvis following the administration of 100 cc of Isovue 3 00 IV contrast material and oral contrast. Coronal and sagittal reformats were performed. Patient was premedicated for iodine allergy. FINDINGS: LOWER CHEST: The visualized lung bases are clear. Coronary artery calcifications. Mitral annulus calc ifications. ABDOMEN LIVER: Unremarkable GALLBLADDER AND BILE DUCTS: Unremarkable. PANCREAS: Unremarkable. SPLEEN: Unremarkable. ADRENAL GLANDS: Unremarkable. KIDNEYS AND URETERS: No evidence of hydronephrosis or renal calculus. The kidneys enhance symmetrical ly. Bilateral perinephric fat stranding. PELVIS BLADDER: Incompletely distended but grossly unremarkable. REPRODUCTIVE: Unremarkable. ABDOMEN & PELVIS STOMACH AND BOWEL: Stomach and duodenum are unremarkable. Enteric contrast reaches the rectum. Scatte red colonic diverticulosis without evidence for acute diverticulitis. No focal bowel wall thickening or surrounding inflammatory changes. The appendix is not definitively identified. No significant infl ammatory changes within the right lower quadrant. No pneumatosis. No evidence of bowel obstruction. PERITONEUM: No evidence of pneumoperitoneum or free fluid. VASCULATURE: Moderate atherosclerotic calcifications are present throughout the abdominal aorta and i ts branches. No evidence of aortic aneurysm. Pelvic phleboliths. MUSCULOSKELETAL: No acute osseous abnormalities. Grade 1 anterior spondylolisthesis of L5 on S1 witho ut pars defects. Mild multilevel degenerative disease. LYMPH NODES: No evidence for lymphadenopathy. SOFT TISSUE/ABDOMINAL WALL: Unremarkable IMPRESSION: 1. No CT evidence for acute abdominal/pelvic process. 2. Colonic diverticulosis without evidence for acute diverticulitis. [facility], , 08/18/2024 10:23 AM
== END | disposition home or self-care (01) ==
LOC: RADCTMAIN 08-09 09:36
PROVIDERS: ATTEND Surgery Plastic and Reconstructive Surgery
DX: K57.32 Diverticulitis of large intestine without perforation or abscess without bleeding (principal); K57.30 Diverticulosis of large intestine without perforation or abscess without bleeding
CPT/HCPCS: 82565; 84520; 74177; 36415; Q9967